=== PATIENT | female | born 1970 | race Caucasian/White ===

== ENCOUNTER 2021-09-27 19:25 | Outpatient (REF) | payer SELFPAY ==
[2021-09-28 20:54] LABS: COVID-19 RT-PCR UVMMC Result Negative (Negative)
== END 2021-09-27 19:26 | disposition home or self-care (01) ==
LOC: LBN 19:25
PROVIDERS: Visit Provider Nurse Practitioner Family
DX: Z20.822 Contact with and (suspected) exposure to COVID-19 (principal)
CPT/HCPCS: U0003

== ENCOUNTER 2022-12-19 18:32 | Outpatient (REF) | payer OTHER, SELFPAY ==
--- NOTE | 2022-12-19 18:00 | PAPFT_PTH ---
PATIENT: Charlotte Prather LOC: [facility] U#:[id number] AGE/SX: 52/F ROOM: RE12/19/[address]: Rosanna Fisher APRN : 1970 BED: DIS: 12/19/2022 SPEC #: [id number] RECD: 12/19/22 18:50 STATUS: ANDERSON REQ #: [id number] NANDO: 12/19/22 18:[address]: Rosanna Fisher DEPT: [facility] [place] Cytology RECD BY: Rhoda Feng Tissues: 1 - CX/ENDOCX FOR PAP SMEARS Procedures: PAP THIN PREP/UVM Screening HPV DNA PROBE Comments: [id number]
== END 2022-12-19 18:33 | disposition home or self-care (01) ==
LOC: LBN 18:32
PROVIDERS: PCP Nurse Practitioner Adult Health; Visit Provider Nurse Practitioner Adult Health
DX: Z12.4 Encounter for screening for malignant neoplasm of cervix (principal); Z11.51 Encounter for screening for human papillomavirus (HPV)
CPT/HCPCS: 88142; 87624

== ENCOUNTER 2023-01-03 00:59 | Outpatient (CLI) | payer OTHER, SELFPAY ==
--- NOTE | 2023-01-03 06:45 | DI.MAMMO_ITS ---
Exam(s) MAMMO SCREENING EXAM: MAMMO SCREENING CLINICAL HISTORY: screening,Z12.39 TECHNIQUE: Bilateral full field digital CC and MLO mammographic images were obtained with 3D tomosyn thesis and utilizing computer aided detection (CAD). COMPARISON: Available for comparison. FINDINGS: Masses/Architectural Distortion: There are stable nodules in the upper outer quadrant of the left ashley ast. No suspicious nodules are seen. A biopsy clip is again seen in the right breast. Microcalcifications: No suspicious pleomorphic-type are seen. Skin Thickening/Nipple Retraction: None. IMPRESSION: 1. No significant interval change with no specific features of malignancy noted. 2. Unless there is more urgent need, screening mammography is recommended, as per [employer] guidelines. BI-RADS Category 2 - Benign Findings Breast Density - Category C - Heterogeneously dense Breast density category C or D implies that the patient has dense breast tissue. Dense breast tissue is very common and is not abnormal but dense breast tissue can make it harder to find cancer on a ma mmogram. Also, dense breast tissue may increase their breast cancer risk. This information about the result of the mammogram report was provided to the patient to raise their awareness. Use this report when you speak with the patient about their risks for breast cancer, which includes their family hist ory. At that time, you may recommend for more screening tests (Ultrasound or MRI) as they might be us eful based on their risk. A negative radiographic report should not delay biopsy if a dominant or clinically suspicious mass is present. Up to ten percent of cancers are not identified on mammography. A negative report may reinforce clinical impression. Adenosis and dense breasts may obscure an underlying neoplasm. False positive reports average 6 to 10%. Patient will receive a letter notifying them of these results.
== END 2023-01-03 01:19 ==
LOC: DI 01:00
PROVIDERS: PCP Nurse Practitioner Adult Health; Visit Provider Nurse Practitioner Adult Health
DX: Z12.31 Encounter for screening mammogram for malignant neoplasm of breast (principal)
CPT/HCPCS: 77063; 77067

== ENCOUNTER 2023-01-03 02:51 | Outpatient (CLI) | payer OTHER, SELFPAY ==
[2023-01-03 09:20] LABS: Anion Gap 6.8 mmol/L (3-11); BUN 12 mg/dL (7-18); CO2 30.2 mmol/L (21.0-32.0); CREATININE 0.8 mg/dL (0.55-1.02); Calcium 9.5 mg/dL (8.5-10.1); Calculated LDL 143 mg/dL (<100); Chloride 106 mmol/L (98-107); Cholesterol 250 mg/dL (<200); Estimated GFR 88.05 (mL/min/1.73m2); Glucose 89 mg/dL (74-106); HDL Cholesterol 97 mg/dL (40-60); Potassium 4.2 mmol/L (3.5-5.1); Sodium 143 mmol/L (136-145); Triglyceride 53 mg/dL (<150)
== END 2023-01-03 02:52 | disposition home or self-care (01) ==
PROVIDERS: PCP Nurse Practitioner Adult Health; Visit Provider Nurse Practitioner Adult Health
DX: Z13.220 Encounter for screening for lipoid disorders (principal); Z13.1 Encounter for screening for diabetes mellitus
CPT/HCPCS: 36415; 80048; 80061

== ENCOUNTER 2023-10-10 14:03 | Outpatient (REF) | payer OTHER, SELFPAY ==
--- NOTE | 2023-10-10 14:15 | SKI_PTH ---
PATIENT: Charlotte Prather LOC: [facility] [place] U#:[id number] AGE/SX: 53/F ROOM: RE10/10/[address]: Ilene Mujica : 1970 BED: DIS: 10/10/2023 SPEC #: [id number] RECD: 10/10/23 17:16 STATUS: ANDERSON REQ #: [id number] NANDO: 10/10/23 14:[address]: Ilene Mujica DEPT: Surgical Specimen RECD BY: Rhoda Feng ENTERED: 10/10/23 17:17 SP TYPE: ADRIAN GUERRERO DR: Rosanna Fisher APRN Tissues: 1 - SKIN BIOPSY(SHAVE/PUNCH) Procedures: GROSS AND MICRO LEVEL 3 Comments: [id number]
== END 2023-10-10 14:04 | disposition home or self-care (01) ==
LOC: LBN 14:03
PROVIDERS: PCP Nurse Practitioner Adult Health; Visit Provider Surgery
DX: L72.0 Epidermal cyst (principal)
CPT/HCPCS: 88304; 88305

== ENCOUNTER 2023-11-14 03:11 | Outpatient (CLI) | payer OTHER, SELFPAY ==
[2023-11-14 12:23] LABS: Abs Immature Grans 0.01 10^3/uL (0.0-0.06); Absolute Basophil Count 0.05 10^3/uL (0.0-0.2); Absolute Lymphocyte Count 2.02 10^3/uL (1.2-3.4); Absolute Monocyte Count 0.47 10^3/uL (0.1-0.8); Basophils % 1.1; Eosinophils % 2.1; HCT 41.5 % (36.0-46.0); HGB 13.8 g/dL (11.2-15.7); Immature Grans % 0.2; Lymphocytes % 42.5; MCH 29.3 pg (27.0-33.0); MCHC 33.3 % (32.0-36.0); MCV 88 fL (80-95); MPV 9.4 fL (8.0-11.0); Monocytes % 9.9; Neutrophils % 44.2; Platelet Count 272 10^3/uL (130-400); RBC 4.71 10^6/uL (3.93-5.22); RDW 12.8 % (11.7-14.6); RDW-SD 41.3 fL; WBC 4.75 10^3/uL (4.4-10.8)
[2023-11-14 12:36] LABS: PTT Activated 26.3 sec (23.6-32.8); Prothrombin Time 10.3 sec (9.1-11.1)
[2023-11-15 11:26] LABS: Von Willebrand Factor Antigen 151 % (50-185)
[2023-11-16 11:36] LABS: Coag FactorVIII Activity Assay 170 % (55 - 200); von Willebrand Factor Activity 125 % (55 - 200); von Willebrand Factor Ag 141 % (55 - 200)
== END 2023-11-14 03:12 | disposition home or self-care (01) ==
LOC: LBO 03:11
PROVIDERS: PCP Nurse Practitioner Adult Health; Visit Provider Nurse Practitioner Adult Health
DX: R58 Hemorrhage, not elsewhere classified (principal)
CPT/HCPCS: 36415; 85240; 85245; 85246; 85390; 85397; 85025; 85610; 85730

== ENCOUNTER 2024-12-17 00:34 | Outpatient (CLI) | payer OTHER, SELFPAY ==
--- NOTE | 2024-12-17 08:00 | DI.MAMMO_ITS ---
Exam(s) MAMMO SCREENING EXAM: MAMMO SCREENING CLINICAL HISTORY: screening,z12.39 TECHNIQUE: Mammograms were interpreted according to the usual protocol including computer analysis w [employer] CAD system, tomosynthesis and C-view imaging. COMPARISON: 2014 through 2022 FINDINGS: The breasts are composed of heterogeneously dense fibroglandular densities, Breast Density category C . No suspicious masses or suspicious microcalcifications are seen. Biopsy marker clip again noted in t he right breast. No skin thickening or abnormal axillary lymph nodes are seen. There has been no significant change from prior exams. IMPRESSION: BI-RADS Category 1, Negative mammogram. Yearly screening mammography is recommended. Breast Density Category C, heterogeneously Dense. The mammogram demonstrates the patient's breast tissue is dense. Dense breast tissue is very common a nd is not abnormal but dense breast tissue can make it harder to find cancer on a mammogram. Also, de nse breast tissue may increase breast cancer risk. This information about the result of the mammogram report was provided to the patient to raise their awareness. Use this report when you speak with the patient about their risks for breast cancer, which includes their family history. At that time, you may recommend additional screening tests (Ultrasound or MRI) as they might be useful based on their r isk. A negative radiographic report should not delay biopsy if a dominant or clinically suspicious mass is present. Up to ten percent of cancers are not identified on mammography. A negative report may reinforce clinical impression. Adenosis and dense breasts may obscure an underlying neoplasm. False positive reports average 6 to 10%.
== END 2024-12-17 00:54 ==
LOC: DI 00:34
PROVIDERS: PCP Nurse Practitioner Adult Health; Visit Provider Nurse Practitioner Adult Health
DX: Z12.31 Encounter for screening mammogram for malignant neoplasm of breast (principal)
CPT/HCPCS: 77063; 77067

== ENCOUNTER 2025-02-02 16:10 | Outpatient (CLI) | payer OTHER, SELFPAY ==
--- NOTE | 2025-02-02 16:00 | DI.RAD_ITS ---
Exam(s) XR WRIST LT COMPLETE EXAM: XR WRIST LT COMPLETE CLINICAL HISTORY: Wrist injury, S69.90XA, Evaluate for fracture. TECHNIQUE: 2D digital imaging was performed. COMPARISON: No exams were available for comparison FINDINGS: 3 views There is a mildly impacted fracture of the distal radius with minimal if any significant displacement . There is no significant ulnar variance on the ulnar styloid is intact as are the carpal row bones. Scapholunate distance is normal. An accessory ossicle is incidentally noted off the dorsal carpal bones. IMPRESSION: Mildly impacted fracture of the distal radius as described above. DATA REPOSITORY: RADIATION DOSE DELIVERED:
== END 2025-02-02 16:30 ==
PROVIDERS: PCP Nurse Practitioner Adult Health; Visit Provider Family Medicine
DX: S52.501A Unspecified fracture of the lower end of right radius, initial encounter for closed fracture (principal); X58.XXXA Exposure to other specified factors, initial encounter
CPT/HCPCS: 73110

== ENCOUNTER 2025-02-18 14:45 | Outpatient (CLI) | payer OTHER, SELFPAY ==
--- NOTE | 2025-02-18 14:14 | DI.RAD_ITS ---
Exam(s) XR WRIST LT LIMITED EXAM: XR WRIST LT LIMITED CLINICAL HISTORY: F/U L DISTAL RAD FX. TECHNIQUE: 2D digital imaging was performed of the left wrist. Two images were obtained. PA and la teral views were obtained. COMPARISON: CR XR WRIST LT COMPLETE from 02/02/2025 FINDINGS: BONES: There has been no change in alignment of the fracture involving the distal metaphysis of the l eft radius. No new fracture is seen. No bony destructive lesion is seen. JOINTS: The carpal bones are normally aligned. SOFT TISSUE: There is a round well corticated osseous density on the dorsum of the wrist which is chr onic. IMPRESSION: Stable alignment of the distal left radial fracture. DATA REPOSITORY: RADIATION DOSE DELIVERED:
== END 2025-02-18 14:46 | disposition home or self-care (01) ==
LOC: DIORS 14:46
PROVIDERS: PCP Nurse Practitioner Adult Health; Visit Provider Physician Assistant
DX: S52.592A Other fractures of lower end of left radius, initial encounter for closed fracture (principal); X58.XXXD Exposure to other specified factors, subsequent encounter
CPT/HCPCS: 73100

== ENCOUNTER 2025-03-17 08:53 | Outpatient (CLI) | payer OTHER, SELFPAY ==
--- NOTE | 2025-03-17 08:00 | DI.RAD_ITS ---
Exam(s) XR WRIST LT LIMITED EXAM: XR WRIST LT LIMITED INDICATION: F/U FRACTURE. COMPARISON: CR XR WRIST LT LIMITED from 02/18/2025 TECHNIQUE: 2D digital imaging was performed. Two views. FINDINGS: There has been some interval healing at the distal radial fracture. The alignment is unchanged. No new abnormalities. DATA REPOSITORY: RADIATION DOSE DELIVERED:
== END 2025-03-17 08:54 | disposition home or self-care (01) ==
LOC: DIORS 08:54
PROVIDERS: PCP Nurse Practitioner Adult Health; Visit Provider Student in an Organized Health Care Education/Training Program
DX: S52.502A Unspecified fracture of the lower end of left radius, initial encounter for closed fracture (principal)
CPT/HCPCS: 73100